=== PATIENT | male | born 1960 | race Caucasian/White ===

== ENCOUNTER → 2016-06-04 02:36 | Emergency (ER) | payer BC ==
[2016-06-04 01:04] LABS: BASOPHILS 0.3 %; BASOPHILS ABSOLUTE 0.04 10/3/uL (0.0-0.16); EOSINOPHILS 0.6 %; EOSINOPHILS ABSOLUTE 0.09 10/3/uL (0.0-0.53); HEMATOCRIT 46.6 % (40.0-51.0); HEMOGLOBIN 15.8 g/dL (13.6-17.8); IMMATURE GRANULOCYTES 0.3 %; IMMATURE GRANULOCYTES ABSOLUTE 0.04 10/3/uL (0.0-0.11); LYMPHOCYTES 11.5 %; LYMPHOCYTES ABSOLUTE 1.78 10/3/uL (0.67-4.30); MEAN CORPUS HGB CONC 33.9 g/dL (32.0-36.0); MEAN CORPUSCULAR HEMOGLOB 30.3 pg (26.0-34.0); MEAN CORPUSCULAR VOLUME 89.4 fL (80-100); MEAN PLATELET VOLUME 9.1 fL (9.2-13.0); MONOCYTES 6.6 %; MONOCYTES ABSOLUTE 1.02 10/3/uL (0.21-1.20); NEUTROPHILS 80.7 %; NEUTROPHILS ABSOLUTE 12.56 10/3/uL (2.02-8.40); PLATELET COUNT 220 10/3/uL (150-400); RBC DISTRIBUTION WIDTH 12.4 % (12.0-16.0); RED CELL COUNT 5.21 10/6/uL (4.7-6.1)
[2016-06-04 01:05] LABS: ER CBC TAT 0 Hrs 05 MinsNP; MANUAL DIFF NO %; WHITE BLOOD CELLS 15.5 10/3/uL (4.5-10.5)
[2016-06-04 01:23] LABS: A/G RATIO 1.3 (0.7-1.9); ALBUMIN 4.2 G/DL (3.5-5.0); ALKALINE PHOSPHATASE 72 U/L (45-117); BUN (BLOOD UREA NITROGEN) 17 MG/DL (6-23); CALCIUM, SERUM 9.1 MG/DL (8.5-10.4); CHLORIDE, SERUM 105 MMOL/L (96-112); CO2 (CARBON DIOXIDE) 27 MMOL/L (24-34); GLOBULIN 3.3 G/DL (2.5-4.1); SGOT(AST) 31 U/L (5-40); SGPT(ALT) 52 U/L (5-65); SODIUM, SERUM 141 MMOL/L (135-148); TOTAL BILIRUBIN 0.4 MG/DL (0-1.2); TOTAL PROTEIN 7.5 G/DL (6.0-8.5)
[2016-06-04 01:23] LABS: ASCORBIC ACID (UR NOT ORDER) NEG (NEG); BILIRUBIN, URINE NEGATIVE (NEG); ER URINALYSIS TAT 0 Hrs 00 Mins; KETONE, URINE TRACE MG/DL (NEG); LEUKOCYTE ESTERASE(NOT OR NEG (NEG); NITRITE (URINE) NEG (NEG); WBC (NOT ORDERED) (RFLEX) 1 (0-5)
[2016-06-04 01:25] LABS: CREATININE 1.62 MG/DL (0.70-1.30); GFR AFRICAN AMERICAN 55 ML/MIN (>=60); GFR NON AFRICAN AMERICAN 47 ML/MIN (>=60); GLUCOSE, SERUM 133 MG/DL (60-99); POTASSIUM, SERUM 4.3 MMOL/L (3.5-5.3)
[~2016-06-04 02:36] MED LIST: ALLEGRA180 PO; ANTIBIOTIC; CALCIUM PO; CO Q-10100 MG PO; FISH OIL1200 MG PO; VITAMIN D
== END | disposition left against medical advice (07) ==
LOC: ER 02:36
PROVIDERS: Emergency Medicine
DX: R10.9 Unspecified abdominal pain (principal); M54.5 Low back pain; Z53.21 Procedure and treatment not carried out due to patient leaving prior to being seen by health care provider; Z79.899 Other long term (current) drug therapy
CPT/HCPCS: 80053; 81001; 83690; 85025

== ENCOUNTER 2016-08-08 05:03 | Day surgery (SDC) | payer BC ==
[2016-08-06 18:27] LABS: HEMATOCRIT 46.4 % (40.0-51.0); HEMOGLOBIN 15.3 g/dL (13.6-17.8)
[2016-08-06 18:44] LABS: ASCORBIC ACID (UR NOT ORDER) NEG (NEG); BILIRUBIN, URINE NEGATIVE (NEG); KETONE, URINE NEGATIVE (NEG); LEUKOCYTE ESTERASE(NOT OR NEG (NEG); WBC (NOT ORDERED) (RFLEX) 1 (0-5)
--- NOTE | ~2016-08-08 | OP ---
[facility] Of [id number] [place]. [address] NAME: ION DELEON : 62 STATUS : REG [facility]#: [id number] AGE: 56 ADM/REG DATE : 08/08/16 MR#: [id number] REPORT SERV DATE: 08/09/16 DICTATED BY: AMBER SWANSON DATE: 08/09/16 REPORT STATUS : Draft TRANSCRIBED BY: MODL DATE: 08/09/16 DATE OF PROCEDURE: 08/08/2016 SURGEON: Amber Swanson MD TITLE OF OPERATION: 1. Right ureteral extracorporeal shock wave lithotripsy. 2. Cystourethroscopy. PREOPERATIVE DIAGNOSES: 1. Right ureteral stone. 2. Gross hematuria. POSTOPERATIVE DIAGNOSES: 1. Right ureteral stone. 2. Gross hematuria. INDICATIONS: Mr. Deleon is a 56-year-old male with a right ureteral stone. He has failed conservative management, and he also has gross hematuria. He is here for shock wave lithotripsy and cystoscopy. ANESTHESIA: MAC. COMPLICATIONS: None. IMPLANTS: None. SPECIMENS: None. NARRATIVE: The patient was brought to the lithotripsy suite, sedation was induced, and Levaquin was given for preoperative antibiotics. He was placed in supine position. Flexible cystourethroscopy was performed. His urethra was normal. His prostatic urethra was not obstructed. There were no tumors, lesions, or abnormalities in the bladder. The scope was removed. The stone was localized with the lithotripsy machine in the AP and lateral planes. The working head was coupled to the patient. The power of the shock waves were gradually increased to level 5, the rate was 90 and a total of 3000 shocks were delivered to the stone under periodic fluoroscopic guidance. Total fluoroscopy time was less than 2 minutes. There was a good radiographic response. No complications. The patient was awoken from anesthesia and transferred to the recovery room in stable condition. JEREMIAS/FLORA ber Swanson MD [facility] Of [address] [place]. [address] NAME: ION DELEON : 62 STATUS : REG [facility] PAT#: [id number] AGE: 56 ADM/REG DATE : 08/08/16 MR#: [id number] REPORT SERV DATE: 08/09/16 DICTATED BY: AMBER SWANSON DATE: 08/09/16 REPORT STATUS : Draft TRANSCRIBED BY: MODL DATE: 08/09/16 / [id number] CC: MD René Vieira M.D.
== END 2016-08-08 23:59 | disposition home or self-care (01) ==
LOC: SDC 05:03
PROVIDERS: Urology
PROC: 0TF6XZZ Fragmentation in Right Ureter, External Approach (ICD-10-PCS; principal; 2016-08-08 07:00)
DX: N20.1 Calculus of ureter (principal); R31.0 Gross hematuria; L71.8 Other rosacea; J30.2 Other seasonal allergic rhinitis; K21.9 Gastro-esophageal reflux disease without esophagitis; Z85.820 Personal history of malignant melanoma of skin; Z87.442 Personal history of urinary calculi; Z79.899 Other long term (current) drug therapy
CPT/HCPCS: 50590; 74000; 81001; 85014; 85018; 93005; J3010